=== PATIENT | male | born 1945 | race Caucasian/White ===

== ENCOUNTER 2018-05-26 17:44 | Emergency (ER) | payer MEDICARE ==
[2018-05-26 18:10] VITALS: BP 144/85; PULSE 78; TEMP 98.2; O2SAT 98
--- NOTE | 2018-05-26 19:45 | C.PDOC ---
History Of Present Illness 72 year old male presents to the emergency department status-post tripping and falling one week ago. Patient reports swelling to the top of his right foot. Patient states that the pain didn't resolve with time, so he came to the ED. Time Seen by Provider: 05/26/18 18:35 Chief Complaint (Nursing): Lower Extremity Problem/Injury History Per: Patient History/Exam Limitations: no limitations Onset/Duration Of Symptoms: Other (one week) Current Symptoms Are (Timing): Still Present - Ankle/Foot Description Of Injury: Fell Past Medical History Reviewed: Historical Data, Nursing Documentation, Vital Signs Vital Signs: Last Vital Signs Temp 98.2 F 05/26/18 18:04 Pulse 78 05/26/18 18:04 Resp 18 05/26/18 18:04 BP 144/85 05/26/18 18:04 Pulse Ox 98 05/26/18 18:04 - Medical History PMH: Back Problems Surgical History: No Surg Hx Family History: States: No Known Family Hx - Social History Hx Tobacco Use: No Hx Alcohol Use: No Hx Substance Use: No - Immunization History Hx Tetanus Toxoid Vaccination: No Hx Influenza Vaccination: No Hx Pneumococcal Vaccination: No Review Of Systems Constitutional: Negative for: Fever, Chills Gastrointestinal: Negative for: Nausea, Vomiting, Abdominal Pain, Diarrhea Musculoskeletal: Positive for: Foot Pain Neurological: Negative for: Weakness, Numbness Physical Exam - Physical Exam Appears: Non-toxic, No Acute Distress Skin: Normal Color, Warm, Dry, No Ecchymosis Head: Atraumatic, Normacephalic Eye(s): bilateral: Normal Inspection Chest: Symmetrical, No Tenderness Extremity: Tenderness (tenderness to the distal ends of 2nd and 3rd metatarsal), Swelling (to the dorsum of the right foot) Pulses: Left Dorsalis Pedis: Normal, Right Dorsalis Pedis: Normal Neurological/Psych: Oriented x3, Normal Speech, Normal Cognition ED Course And Treatment O2 Sat by Pulse Oximetry: 98 (RA) Pulse Ox Interpretation: Normal Medical Decision Making Medical Decision Making: Plan: Tylenol 650mg PO Tawanda bandage XR Right Foot Cold compress 2005 no fx noted on wet read, tawanda bandage and post op shoe applied. d/c home with podiatry f/u Disposition Counseled Patient/Family Regarding: Studies Performed, Diagnosis, Need For Followup, Rx Given - Disposition Referrals: [facility] [Outside] Podiatry Clinic [Outside] Disposition: HOME/ ROUTINE Disposition Time: 20:07 Condition: GOOD Additional Instructions: Please follow up at podiatry clinic in next few days. Wear orthopedic shoe for comfort. Wear tawanda bandage in daytime to help reduce swelling. Apply cold compresses over cloth to right foot several times a day to help decrease swelling. Keep right foot elevated whenever possible. Tylenol for pain. Prescriptions: Acetaminophen [Tylenol 325mg tab] 650 mg PO Q6 #30 tab Instructions: Foot Sprain (DC) Forms: [facility] ([place]), General Discharge Instructions - Clinical Impression Clinical Impression: Right foot sprain - PA / GOVERNMENT RELATIONS DIRECTOR / Resident Statement MD/DO has reviewed & agrees with the documentation as recorded. - Scribe Statement The provider has reviewed the documentation as recorded by the Scribe ([place]) All medical record entries made by the Scribe were at my direction and personally dictated by me. I have reviewed the chart and agree that the record accurately reflects my personal performance of the history, physical exam, medical decision making, and the department course for this patient. I have also personally directed, reviewed, and agree with the discharge instructions and disposition.
[2018-05-26 20:23] VITALS: RESP 20
--- NOTE | 2018-05-27 10:23 | RAD ---
Date of service: 05/26/2018 PROCEDURE: Right Foot Radiographs. HISTORY: swelling. pain 3 and 4 prox metatarsal COMPARISON: None. FINDINGS: BONES: No acute fracture or destructive bony lesion identified. JOINTS: Mild hallux valgus deformity. SOFT TISSUES: Normal. OTHER FINDINGS: None. IMPRESSION: No acute fracture or dislocation. Mild hallux valgus deformity identified.
== END 2018-05-26 20:22 | disposition home or self-care (01) ==
LOC: C.ER 17:44
DX: S93.601A Unspecified sprain of right foot, initial encounter (principal); W01.0XXA Fall on same level from slipping, tripping and stumbling without subsequent striking against object, initial encounter